=== PATIENT | male | born 2005 | race African-American/Black ===

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

== ENCOUNTER 2024-08-28 12:56 | Emergency (ER) | payer MEDICAID, SELFPAY ==
[2024-08-28 12:56] VITALS: BP 135/78; PULSE 55; RESP 16; TEMP 36.6; O2SAT 100; BMI 26.7
--- NOTE | 2024-08-28 13:39 | US_ITS ---
We are attempting to reach an attending provider to discuss findings. An addendum with communication details will be sent when the communication is complete. STUDY: SCROTUM ULTRASOUND REASON FOR EXAM: Male, 19 years old. testicular pain TECHNIQUE: Ultrasound evaluation of the scrotum was performed with color Doppler and static yi-scale imaging. COMPARISON: None. FINDINGS: RIGHT TESTICLE INTRATESTICULAR: There is a normal size of the right testicle. The right testicle measures 4.6 cm. There is a homogenous echotexture. There is absent arterial vascularity. There is no demonstrated right testicular mass or cyst. EXTRATESTICULAR: The epididymis is normal in size. The epididymis head measures 1.3 cm. There is normal vascularity of the epididymis. There is no demonstrated epididymal cystic structure. There is a large hydrocele. There is no demonstrated varicocele. There is no demonstrated extratesticular mass or cyst. LEFT TESTICLE INTRATESTICULAR: There is a normal size of the left testicle. The left testicle measures 4.6 cm. There is a homogenous echotexture. There is normal arterial and normal venous vascularity. There is no demonstrated left testicular mass or cyst. Left testes was elevated in near the inguinal canal. This may be related to from a circumflex reflux. EXTRATESTICULAR: The epididymis is normal in size. The epididymis head measures 1.2 cm. There is normal vascularity of the epididymis. There is no demonstrated epididymal cystic structure. There is no demonstrated hydrocele. There is no demonstrated varicocele. There is no demonstrated extratesticular mass or cyst. US/Testicular with Arterial Flow IMPRESSION: Findings concerning for right testicular torsion. Large right hydrocele. Electronically Signed: Compa Sandoval MD at 16:37 EST ,
--- NOTE | 2024-08-28 13:54 | EX.ED.GUMALE ---
HPI <KARRIE Hernandez - Last Filed: 08/28/24 16:04> History of Present Illness Chief Complaint: Male Pain/Injury Narrative Narrative: Patient is a 19-year-old male with no significant ankle history who presents to the emerged department for pain to his right testicle. Patient states he had a friend over last evening and they just sat around to watch football games, as well as played video games. There is no strenuous activity. Patient is often sexually active for a couple weeks. However this morning, he had pain to his right testicle. He thought it would go away however continued to get worse and he went to the urgent care referred him here. Denies any difficulty urinating. PFS <KARRIE Hernandez - Last Filed: 08/28/24 16:04> [facility] Home Medications ?Medication ?Instructions ?Recorded ?Last Taken ?Type NK 06/26/20 Unknown History Allergy/AdvReac Type Severity Reaction Status Date / Time prednisone AdvReac IRRITABLE Verified 08/28/24 12:58 Family History Other Cancer Diabetes Heart disease Surgical History (Updated 01/04/21 @ 09:[address] Irene Xavier, ) Hx of tympanostomy tubes Social History (Updated 11/08/20 @ 12:[address] Irene Xavier, DO) Smoking Status: Never smoker alcohol intake: never ROS <KARRIE Hernandez - Last Filed: 08/28/24 16:04> ROS ED ROS Narrative Constitutional: Negative for fever, chills, weight loss, weakness Eyes: Negative for vision loss, vision change, double vision ENT: Negative for any sore throat, ear pain, congestion Cardiovascular: Negative for any chest pain, tightness, palpitations Respiratory: Negative for any cough, sputum production, hemoptysis, dyspnea, dyspnea on exertion, orthopnea Gastrointestinal: Negative for any abdominal pain, nausea, vomiting, diarrhea, constipation, blood in stool, blood in vomit : Negative for any urinary frequency, dysuria, retention, blood in urine. Positive right sided testicular pain Muscle skeletal: Negative for any neck pain, back pain Neurological: Negative for any headache, syncope, dizziness Skin: Negative for any rashes, itching, abrasions, lacerations Psychiatric: Negative for any depression, anxiety, stress, suicidal ideation, homicidal ideation Hematologic: Negative for any excessive bruising, easy bleeding EXAM <KARRIE Hernandez - Last Filed: 08/28/24 16:04> Physical Exam Narrative Exam Narrative: Vital signs reviewed. HEET: Head normocephalic atraumatic, TMs clear bilaterally. Posterior pharynx is clear, moist mucous membranes. Nares clear bilaterally. Neck: Supple with no lymphadenopathy or tenderness. No signs of meningismus. Cardiac: Regular rate and rhythm no murmurs gallops or rubs, equal peripheral pulses bilaterally. Respiratory: Lungs clear to auscultation bilaterally. No chest tenderness. Abdomen: Soft, nontender, nondistended. No abdominal bruit or pulsatile masses. No hepatosplenomegaly Extremities: No peripheral edema, no signs of gross trauma or deformity. Active full range of motion of all extremities. Neuro: Cranial nerves II through XII intact, no focal neurological deficits. Skin: Clean dry and intact with no rash, purpura, petechiae, vesicles or pustules. Backs/flank: No CVA tenderness, no midline spinal tenderness, no deformity. Psych: Normal mood and affect. No SI, HI or acute psychosis. : Testicular exam was completed, patient had no lesions, there is no drainage from penile meatus. The patient's left testicle was unremarkable, right testicle did feel more firm, more full. Minimal pain on palpation. There is no evidence of any cellulitis. Const Vital Signs: 08/28/24 12:56 08/28/24 14:56 08/28/24 15:31 Temperature 98 F 98 F Temperature Source Oral Pulse Rate 55 L 68 68 Respiratory Rate 16 14 14 Blood Pressure 135/78 H 135/78 H Blood Pressure Mean 97 97 Pulse Ox 100 100 100 Oxygen Delivery Method Room Air Room Air <Dr. Alexy Edmonds MD - Last Filed: 08/28/24 16:03> Physical Exam Const Vital Signs: 08/28/24 12:56 08/28/24 14:56 08/28/24 15:31 Temperature 98 F 98 F Temperature Source Oral Pulse Rate 55 L 68 68 Respiratory Rate 16 14 14 Blood Pressure 135/78 H 135/78 H Blood Pressure Mean 97 97 Pulse Ox 100 100 100 Oxygen Delivery Method Room Air Room Air MDM <KARRIE Hernandez Last Filed: 08/28/24 16:04> [facility] Lab Data Labs: Laboratory Results - last 24 hr 08/28/24 13:47 Urine Color Yellow Urine Clarity Clear Urine pH 6.0 Ur Specific [place] 1.020 Urine Protein Negative Urine Glucose (UA) Normal Urine Ketones Negative Urine Occult Blood 10 H Urine Nitrite Negative Urine Bilirubin Negative Urine Urobilinogen Normal Ur Leukocyte Esterase 25 H Urine RBC 0 SEEN Urine WBC 0-5 SEEN Ur Squamous Epith Cells 0 SEEN Urine Bacteria 0 SEEN Urine Mucus 0 SEEN Treatment and Re-Evaluation Narrative: Differential diagnosis includes however is not limited to: Testicular torsion, epididymitis, STI, hydrocele Patient appears generally well, vital signs are stable, patient is nontoxic-appearing. Presenting to the emergency department with complaints of pain to the right testicle. On my physical exam, did feel more full, however there is no evidence of any cellulitis or infectious process. Patient will receive a urinalysis as well as a ultrasound of the testicle with flow. All radiologic examinations were read, reviewed by the emergency department attending. From these reads, a plan of care will be put in place. Patient's urinalysis was negative. The radiologist did call us regarding the venous duplex of the right testicle, the radiologist did see some decreased anterior blood flow, this is concerning for more of a torsion picture. Patient did have a hydrocele however there is definite decrease in atrial blood flow. Recommended to be treated as a torsion. Patient will currently need to be transferred to a facility that has urology. I spoke with [facility] Transfer line. Currently waiting talk to urologist. Spoke with [facility] Transfer line, patient will be an ER to ER transfer. I spoke with Dr. Romero in the emergency department, the patient's mother will drive him directly to the [facility] Emergency department. Patient be seen by urology there. <Dr. Alexy Edmonds MD - Last Filed: 08/28/24 16:03> [facility] Narrative Medical decision making narrative: I have personally performed a face to face assessment of the patient and have reviewed the MARIANA Note. I performed a substantive portion of the visit including all aspects of the following. My patel findings include: History is 19-year-old male no seen past medical history. No prior or inguinal hernia surgery. Awoke this morning and noticed discomfort and mild swelling in his right hemiscrotum. Denies any injury or trauma. Denies any fever. Denies any dysuria. No prior history. No discharge. No other complaints. Exam is [well-appearing 19-year-old male. Vital signs stable afebrile. H EENT exam unremarkable. Lungs clear. Heart regular rhythm no murmur. Rate about 60. Abdomen soft nontender. External exam no obvious inguinal hernia on either side. No pain to palpation inguinal canal. Circumcised male. Shaft unremarkable. No inguinal lymphadenopathy. No discoloration. Mild tenderness and very mild swelling to the right hemiscrotum. No cellulitis. No necrotic tissue. No lesions. Left side is nontender nonswollen. Both lower extremities are unremarkable. Normal in appearance. Strength and range of motion.] Medical Decision Making [19-year-old male atraumatic right hemiscrotal discomfort. Ultrasound and UA being obtained.] Other additions or changes: [ urinalysis normal. He is currently in the ultrasound. Ultrasound shows a hydrocele on the right. Decreased arterial flow. Concern for torsion. Currently we do not have urology available. Urologist is out of town. Patient be transferred to [facility]. Discussed case with both he and family.] Lab Data Attestation: I reviewed the patient's lab results. Lab results narrative: UA normal. Ultrasound of the right hemiscrotum shows a hydrocele. Decreased blood flow. Concern for torsion. I was called and discussed with the transport tank technician. Labs: Laboratory Results - last 24 hr 08/28/24 13:47 Urine Color Yellow Urine Clarity Clear Urine pH 6.0 Ur Specific [place] 1.020 Urine Protein Negative Urine Glucose (UA) Normal Urine Ketones Negative Urine Occult Blood 10 H Urine Nitrite Negative Urine Bilirubin Negative Urine Urobilinogen Normal Ur Leukocyte Esterase 25 H Urine RBC 0 SEEN Urine WBC 0-5 SEEN Ur Squamous Epith Cells 0 SEEN Urine Bacteria 0 SEEN Urine Mucus 0 SEEN Discharge Plan Triage Chief Complaint: Male Pain/Injury ED Midlevel Provider: Daren Muñoz ED Provider: Alexy Edmonds Dx/Rx/DC Orders Clinical Impression: Pain in right testicle, Hydrocele, Torsion of right testicle Instructions: ED Hydrocele, Type Not Specified, ED Testicular Pain, Unclear Cause Prescriptions: No Action NK Primary Care Provider: Marc Stoner Referrals: Marc Stoner MD [Primary Care Provider] - Activity Restrictions/Additional Instructions: You are going to be diagnosed with a testicular torsion on the right side. You need to go immediately to the [facility] Emergency department. Do not eat or drink anything. Dr. Romero who is the emergency room physician is waiting for you. Print Language: [place] Disposition Disposition: Acute Care Hospital Discharge Location: [facility] Discharge Date/Time: 08/28/24 15:42
[2024-08-28 13:55] LABS: Bacteria 0 SEEN /hpf (None Seen); Mucous, Urine 0 SEEN /hpf (<or=2+); Red Blood Cells-Urine 0 SEEN /hpf (0-5); Squamous Epithelial Cells - UA 0 SEEN /hpf (0-5)
[2024-08-28 14:03] LABS: Color, Urine Yellow (Yellow); Glucose, Dipstick Normal (Normal); Ketone-Dipstick Negative (Negative); Leukocyte Esterase-Dipstick 25 /ul (Negative); Nitrite-Dipstick Negative (Negative); Occult Blood-Urine 10 /ul (Negative); Protein-Dipstick Negative (Negative); Urine Bilirubin Dipstick Negative (Negative); Urine Clarity Clear (Clear); Urine Urobilinogen Normal (Normal)
[2024-08-28 14:10] LABS: White Blood Cells 0-5 SEEN /hpf (0-5)
[2024-08-28 14:56] VITALS: PULSE 68; RESP 14; O2SAT 100
[2024-08-28 15:31] VITALS: BP 135/78; PULSE 68; RESP 14; TEMP 36.6; O2SAT 100
== END 2024-08-28 15:42 | disposition short-term general hospital (02) ==
PROVIDERS: Nurse Practitioner; Emergency Provider Emergency Medicine; PCP Pediatrics; Visit Provider Emergency Medicine
DX: N44.00 Torsion of testis, unspecified (principal); N43.3 Hydrocele, unspecified
CPT/HCPCS: 76870; 81001; 93976; 99283